=== PATIENT | male | born 1965 | race Caucasian/White ===

== ENCOUNTER 2023-11-27 15:02 | Inpatient (IN) | payer SELFPAY ==
[~2023-11-27] VITALS: Ht 190.5 cm; Wt 148.0 kg
[2023-11-27] VITALS (9 sets, daily range): BP systolic 150–161; BP diastolic 96–108; PULSE 60–77; RESP 12–24; TEMP 97.4–98.4; O2SAT 95–99
[2023-11-27] MEDS: HEPARIN SODIUM (PORCINE) 5000 UNITS/ML 1ML VIAL IV ONE (15:20)
[2023-11-27] MEDS: ASPirin 81 mg TAB PO ONE ×2 (15:21→15:22)
[2023-11-27] MEDS: MORPHINE SULFATE 4 MG/ML SYR/VIAL IV ONE (15:35)
[2023-11-27] MEDS: ONDANSETRON HCL 4 MG/2 ML VIAL IV ONE (15:36)
[2023-11-27 15:43] LABS: Basophils # (auto) 0 10 ^3/uL (0-0.2); Basophils % (auto) 0.4 % (0.0-2.0); Eosinophils # (auto) 0.2 10 ^3/uL (0-0.8); Eosinophils % (auto) 2.2 % (0.0-7.0); Hematocrit 46.1 % (41.0-53.0); Lymphocytes # (auto) 2.4 10 ^3/uL (0.4-5.4); Lymphocytes % (auto) 22.6 % (10.0-50.0); Mean Corpuscular Hemoglobin 31.7 pg (28.0-32.0); Mean Corpuscular Hgb Conc. 34.8 g/dL (32.0-36.0); Mean Corpuscular Volume 91.2 fL (80.0-100.0); Monocytes % (auto) 9.7 % (0.0-12.0); Neutrophils # (auto) 6.8 10 ^3/uL (1.6-8.6); Neutrophils % (auto) 65.1 % (37.0-80.0); Platelet Count (auto) 206 10^3/uL (140-450); Red Blood Cells 5.05 10^6/uL (4.5-5.90); Red Cell Distribution Width 15.1 % (11.8-14.3); White Blood Cell 10.4 10^3/uL (4.4-10.8)
[2023-11-27 15:57] LABS: Alanine Aminotransferase 174 U/L (7-40); Alkaline Phosphatase 78 U/L (46-116); Anion Gap 6 (5-15); Aspartate Aminotransferase 108 U/L (13-40); BUN/Creatinine Ratio 13.4 (10.0-20.0); Bilirubin, Total 0.6 mg/dL (0.2-1.0); Blood Urea Nitrogen 15 mg/dL (9-23); Calcium 9.6 mg/dL (8.7-10.4); Carbon Dioxide 23 mmol/L (20-30); Chloride 111 mmol/L (98-107); Cholesterol 173 mg/dL (< 200); Glucose 134 mg/dL (74-106); HDL Cholesterol 31 mg/dL (40-59); LDL Cholesterol 118 mg/dL (< 100); Magnesium 1.9 mg/dL (1.6-2.6); Potassium 3.5 mmol/L (3.5-5.1); Sodium 140 mmol/L (136-145); Total Protein 6.5 g/dL (5.7-8.2); Triglycerides 224 mg/dL (< 150)
[2023-11-27] MEDS ORDERED: ONDANSETRON HCL 4 MG/2 ML VIAL IV PRN (17:30)
[2023-11-27] MEDS ORDERED: HYDROcodone-ACET 5/325MG TAB PO PRN (17:30)
[2023-11-27] MEDS ORDERED: NITROGLYCERIN 0.4 MG SL TAB SL PRN (17:30)
[2023-11-27] MEDS ORDERED: LABE200T10 PO (18:42)
[2023-11-27] MEDS ORDERED: METH4PAK3 (18:42)
[2023-11-27] MEDS ORDERED: ATOR-47 PO (18:42)
[2023-11-27] MEDS: ATORVASTATIN 20 MG TAB PO SCH (21:28)
[2023-11-27] MEDS: METOPROLOL TARTRATE 25 MG TAB PO SCH (21:29)
[2023-11-28] VITALS (9 sets, daily range): BP systolic 146–174; BP diastolic 84–97; PULSE 65–93; RESP 17–22; TEMP 97.6–98.7; O2SAT 91–97
[2023-11-28] MEDS: fentaNYL CITRATE 100 MCG/2 ML VL ONE (06:52)
[2023-11-28] MEDS: ANGIOMAX 250 MG VIAL IV ONE (06:53)
[2023-11-28] MEDS: HEPARIN IN NS 1000Units/500mL 1,500 ML ONE (06:53)
[2023-11-28] MEDS: MIDAZOLAM HCL 2MG/2ML 2ml VIAL (1mg/ml) ONE (06:53)
[2023-11-28] MEDS: IODIXANOL 320MG/ML 100ML BTL IV ONE ×2 (06:53→06:54)
[2023-11-28] MEDS: LIDOCAINE 2%HCL (LOCAL ANESTH.) INJ 20ML MDV ONE (06:53)
[2023-11-28] MEDS: SODIUM CHL 0.9% 50 ML ONE (06:53)
[2023-11-28] MEDS: CLOPIDOGREL BISULFATE 75 MG TAB ONE (06:54)
[2023-11-28] MEDS: LABETALOL HCL 5 MG/ML ML 20ML VIAL IV ONE (06:54)
[2023-11-28 07:07] LABS: Chloride 104 mmol/L (98-107); Potassium 3.6 mmol/L (3.5-5.1); Sodium 136 mmol/L (136-145)
[2023-11-28 07:08] LABS: Anion Gap 7 (5-15); Basophils # (auto) 0 10 ^3/uL (0-0.2); Basophils % (auto) 0.1 % (0.0-2.0); Carbon Dioxide 25 mmol/L (20-30); Eosinophils # (auto) 0.1 10 ^3/uL (0-0.8); Eosinophils % (auto) 1.3 % (0.0-7.0); Hematocrit 43.5 % (41.0-53.0); Hemoglobin 15.4 g/dL (13.5-17.5); Lymphocytes # (auto) 1.6 10 ^3/uL (0.4-5.4); Lymphocytes % (auto) 13.6 % (10.0-50.0); Mean Corpuscular Hemoglobin 32.6 pg (28.0-32.0); Mean Corpuscular Hgb Conc. 35.4 g/dL (32.0-36.0); Mean Corpuscular Volume 92.2 fL (80.0-100.0); Monocytes # (auto) 0.8 10 ^3/uL (0-1.3); Monocytes % (auto) 7.3 % (0.0-12.0); Neutrophils % (auto) 77.7 % (37.0-80.0); Platelet Count (auto) 166 10^3/uL (140-450); Red Blood Cells 4.72 10^6/uL (4.5-5.90); Red Cell Distribution Width 14.6 % (11.8-14.3); White Blood Cell 11.6 10^3/uL (4.4-10.8)
[2023-11-28 07:09] LABS: Calcium 9.2 mg/dL (8.7-10.4)
[2023-11-28 07:13] LABS: Blood Urea Nitrogen 18 mg/dL (9-23); Glucose 115 mg/dL (74-106)
[2023-11-28] MEDS: hydrALAZINE HCL 20 MG/ML VL IV ONE (08:24)
[2023-11-28] MEDS: CLOPIDOGREL BISULFATE 75 MG TAB PO SCH (08:25)
[2023-11-28] MEDS: ASPirin-EC 81 mg tab PO SCH (08:25)
[2023-11-28] MEDS ORDERED: hydrALAZINE HCL 20 MG/ML VL IV PRN (11:15)
[2023-11-28] MEDS: LOSARTAN POTASSIUM 50 MG TAB PO ONE (12:00)
[2023-11-28] MEDS: LOSARTAN POTASSIUM 50 MG TAB PO SCH (21:31)
[2023-11-28] MEDS: METOPROLOL SUCCINATE XL 50 MG TAB PO SCH (21:31)
[2023-11-29 00:53] VITALS: BP 128/82; PULSE 71; RESP 21; TEMP 99.3; O2SAT 93
[2023-11-29 05:00] VITALS: BP 151/95; PULSE 63; RESP 21; TEMP 99.1; O2SAT 96
[2023-11-29 08:00] VITALS: PULSE 73; PULSE 74; RESP 16; O2SAT 96
[2023-11-29 08:41] VITALS: BP 152/101; PULSE 73; RESP 16; TEMP 98; O2SAT 96
[2023-11-29] MEDS ORDERED: CLOP75TA70 PO (10:03)
[2023-11-29] MEDS ORDERED: ASPI-543 PO (10:03)
[2023-11-29] MEDS ORDERED: LOSA-534 PO (10:03)
[2023-11-29] MEDS ORDERED: METO-6 PO (10:03)
[2023-11-29] MEDS ORDERED: ATOR20TA50 PO (10:03)
[2023-11-29 10:30] VITALS: BP 152/101; PULSE 73
== END 2023-11-29 12:01 | disposition home or self-care (01) | DRG 322 ==
LOC: EDBD 15:02 → ER 15:02 → TELE 17:33 → TELE-CENTR 18:46
PROVIDERS: ADMIT Specialist; ATTEND Internal Medicine
PROC: 027035Z Dilation of Coronary Artery, One Artery with Two Drug-eluting Intraluminal Devices, Percutaneous Approach (ICD-10-PCS; principal; 2023-11-27)
PROC: 02C03ZZ Extirpation of Matter from Coronary Artery, One Artery, Percutaneous Approach (ICD-10-PCS; 2023-11-27)
PROC: 04HY32Z Insertion of Monitoring Device into Lower Artery, Percutaneous Approach (ICD-10-PCS; 2023-11-27)
PROC: 4A023N7 Measurement of Cardiac Sampling and Pressure, Left Heart, Percutaneous Approach (ICD-10-PCS; 2023-11-27)
PROC: B211YZZ Fluoroscopy of Multiple Coronary Arteries using Other Contrast (ICD-10-PCS; 2023-11-27)
PROC: B215YZZ Fluoroscopy of Left Heart using Other Contrast (ICD-10-PCS; 2023-11-27)
PROC: B241ZZ3 Ultrasonography of Multiple Coronary Arteries, Intravascular (ICD-10-PCS; 2023-11-27)
DX: I21.09 ST elevation (STEMI) myocardial infarction involving other coronary artery of anterior wall (principal); Z68.41 Body mass index [BMI] 40.0-44.9, adult; I10 Essential (primary) hypertension; E78.5 Hyperlipidemia, unspecified; E66.01 Morbid (severe) obesity due to excess calories; Z79.899 Other long term (current) drug therapy; Z79.82 Long term (current) use of aspirin; Z79.02 Long term (current) use of antithrombotics/antiplatelets
CPT/HCPCS: 36415; 71045; 80048; 80053; 80061; 83036; 83735; 83880; 84484; 85025; 92929; 92941; 92973; 92978; 93005; 93306; 93458; 99152; 99291; C1887; G0378; J2250; J2405; Q9967

== ENCOUNTER 2024-11-08 16:55 | Inpatient (IN) | payer MEDICAID ==
[~2024-11-08] VITALS: Ht 190.5 cm; Wt 143.5 kg
[~2024-11-08 16:55] MED LIST: ASPI-543 PO; ATOR-47 PO; ATOR20TA50 PO; CLOP75TA70 PO; LABE200T10 PO; LOSA-534 PO; METH4PAK3; METO-6 PO
--- NOTE | 2024-11-08 17:16 | ED.PDOC ---
SOB-HPI HPI Comments 59-year-old male with a history of ST-elevation NV in November of 2023 status post PTCA, hypertension and dyslipidemia brought in by family complaining of shortness of breath for the last 4 days, associated with elevated blood pressure over the last 2 days, and difficulty using his right arm and leg for the last 3 days. He states he feels as though he asked to concentrate in order to use his hand and walk. He denies any focal weakness or numbness, chest pain or headache. Chief Complaint: Shortness of Breath Time Seen by MD: 17:08 Primary Care Provider: UNKNOWN Reviewed notes: Medications, Allergies Information Source: Patient Mode of Arrival: Ambulatory Severity: Moderate Timing: Days Duration: Since onset Context: At Rest Prehospital treatment: None Past Medical History PAST MEDICAL HISTORY: High Lipids, HTN, NV Surgical History: PTCA, Unknown Family History Family History: Reviewed,noncontributory to illness Social History Smoker: Non-Smoker, Unknown Alcohol: Denies ETOH Use, Unknown Drugs: Denies Drug Use, Unknown Lives In: Home Constitutional: denies: chills, diaphoresis, fatigue, fever, malaise, sweats, weakness, others EENTM: denies: blurred vision, double vision, ear bleeding, ear discharge, ear drainage, ear pain, ear ringing, eye pain, eye redness, hearing loss, mouth pain, mouth swelling, nasal discharge, nose bleeding, nose congestion, nose pain, photophobia, tearing, throat pain, throat swelling, voice changes, others Respiratory: reports: shortness of breath; denies: cough, hemoptysis, orthopnea, SOB at rest, SOB with excertion, stridor, wheezing, others Cardiovascular: denies: chest pain, dizzy spells, diaphoresis, Dyspnea on exertion, edema, irregular heart beat, left arm pain, lightheadedness, palpitations, PND, syncope, others Gastrointestinal: denies: abdomen distended, abdominal pain, blood streaked bowels, constipated, diarrhea, dysphagia, difficulty swallowing, hematemesis, melena, nausea, poor appetite, poor fluid intake, rectal bleeding, rectal pain, vomiting, others Genitourinary: denies: burning, dysuria, flank pain, frequency, hematuria, incontinence, penile discharge, penile sore, pain, testicle pain, testicle swelling, urgency, others Neurological: reports: right sided weakness; denies: dizziness, fainting, headache, left sided numbness, left sided weakness, numbness, paresthesia, pre- existing deficit, right sided numbness, seizure, speech problems, tingling, tremors, weakness, others Musculoskeletal: denies: back pain, gout, joint pain, joint swelling, muscle pain, muscle stiffness, neck pain, others Integumetry: denies: bruises, change in color, change in hair/nails, dryness, laceration, lesions, lumps, rash, wounds, others Allergic/Immunocompromised: denies: Difficulty Healing, Frequent Infections, Hives, Itching, others Hematologic/Lymphatic: denies: anemia, blood clots, easy bleeding, easy bruising, swollen glands, others Endocrine: denies: excessive hunger, excessive sweating, excessive thirst, excessive urination, flushing, intolerance to cold, intolerance to heat, unexplained weight gain, unexplained weight loss, others Psychiatric: denies: anxiety, bipolar disorder, depression, hopeless, panic disorder, schizophrenia, sleepless, suicidal, others All Other Systems: Reviewed and Negative Physical Exam General Appearance: Mild Distress, Obese HEENT: Other (Pupils and face symmetric. Moist mucous membranes.) Neck: Full Range of Motion, Normal Inspection Respiratory: Decreased Breath Sounds, No Accessory Muscle Use, No Respiratory Distress Cardiovascular: No Edema, No JVD, Regular Rate/Rhythm Breast Exam: Deferred Gastrointestinal: Non Tender, Soft Genitalia: Deferred Pelvic: Deferred Rectal: Deferred Extremities: Normal inspection, Normal range of motion, Non-tender, No pedal edema Neurologic: Alert (Oriented x4), medical claims specialist II-XII nml as Tested, Normal Affect, Normal Mood, Other (Ambulatory) Cerebellar Function: NOT DONE Reflexes: NOT DONE Skin: Dry, Normal Color, Warm Lymphatic: NOT DONE EKG EKG : Comments Sinus rhythm, rate 70, NE prolonged at 208, normal QRS and QTC intervals, left axis deviation, old inferior infarct, nonspecific T change. Was a procedure done? Was a procedure done?: No Differential Dx Differential Diagnosis: CHF, COPD, Hypertension, Hyponatremia, Myocardial infarction, Pneumonia, Pneumothorax, Pulmonary Embolism, Other (CVA, TIA, hypertensive encephalopathy, among others) X-Ray, Labs, Meds, VS Vital Signs Date Time Temp Pulse Resp B/P (MAP) Pulse Ox O2 Delivery O2 Flow Rate FiO2 11/08/24 20:07 20 96 Nasal Cannula* 2 28 11/08/24 20:00 66 11/08/24 19:15 Nasal Cannula* 2 28 11/08/24 19:15 97.4 69 20 142/86 (104) 93 97.4 11/08/24 18:03 169/105 11/08/24 17:04 70 11/08/24 16:56 98.4 72 18 198/116 94 98.4 Lab Test 11/08/24 18:19 11/08/24 17:46 Range/Units Troponin I High Sensitivity 15 13 </=54 ng/L White Blood Count 8.7 4.4-10.8 10^3/uL Red Blood Count 5.44 4.5-5.90 10^6/uL Hemoglobin 17.2 13.5-17.5 g/dL Hematocrit 49.5 41.0-53.0 % Mean Corpuscular Volume 90.8 80.0-100.0 fL Mean Corpuscular Hemoglobin 31.6 28.0-32.0 pg Mean Corpuscular Hemoglobin Concent 34.8 32.0-36.0 g/dL Red Cell Distribution Width 14.6 H 11.8-14.3 % Platelet Count 200 140-450 10^3/uL Mean Platelet Volume 10.2 6.9-10.8 fL Neutrophils (%) (Auto) 77.9 37.0-80.0 % Lymphocytes (%) (Auto) 13.6 10.0-50.0 % Monocytes (%) (Auto) 6.9 0.0-12.0 % Eosinophils (%) (Auto) 1.5 0.0-7.0 % Basophils (%) (Auto) 0.1 0.0-2.0 % Neutrophils # (Auto) 6.8 1.6-8.6 10 ^3/uL Lymphocytes # (Auto) 1.2 0.4-5.4 10 ^3/uL Monocytes # (Auto) 0.6 0-1.3 10 ^3/uL Eosinophils # (Auto) 0.1 0-0.8 10 ^3/uL Basophils # (Auto) 0 0-0.2 10 ^3/uL Nucleated Red Blood Cells 0.1 % Sodium Level 141 136-145 mmol/L Potassium Level 4.2 3.5-5.1 mmol/L Chloride Level 108 H 98-107 mmol/L Carbon Dioxide Level 23 20-31 mmol/L Anion Gap 10 5-15 Blood Urea Nitrogen 22 9-23 mg/dL Creatinine 1.38 H 0.700-1.30 mg/dL Glomerular Filtration Rate Calc 59 >90 mL/min BUN/Creatinine Ratio 15.9 10.0-20.0 Serum Glucose 146 H 74-106 mg/dL Calcium Level 9.5 8.7-10.4 mg/dL B-Type Natriuretic Peptide 18.03 0-100 pg/mL Current Medications Medications (Trade) Dose Ordered Sig/Gilda Route Start Time Stop Time Status Last Admin Hydralazine HCl (Apresoline Injection) 10 mg ONCE ONCE IV 11/08/24 17:15 11/08/24 17:16 DC 11/08/24 18:03 Ondansetron HCl (Zofran) 4 mg ONCE ONCE IV 11/08/24 17:15 11/08/24 17:16 DC 11/08/24 18:00 Albuterol (Ventolin Medneb) 2.5 mg ONCE ONCE NEB 11/08/24 19:45 11/08/24 19:47 DC 11/08/24 20:06 Ipratropium Hilton (Atrovent Medneb) 0.5 mg ONCE ONCE NEB 11/08/24 19:45 11/08/24 19:47 DC 11/08/24 20:07 PROCEDURE(s): HWOCT - HEAD WITHOUT CONTRAST REASON: R sided weakness ORDER NUMBER(s): [id number], ACCESSION NUMBER(s): [id number] CT brain without contrast CLINICAL INDICATION: R sided weakness FINDINGS: The study was performed in a multidetector scanner. This study performed taking axial images from the skull base up to the vertex. Both brain and bone windows are photographed. Dose lowering techniques have been used including automated exposure control and adjustment of mA and/or KV according to patient size. There are no areas of intraparenchymal hemorrhage or edema. Focal cystic area near the frontal horn of the left lateral ventricle either due to old lacunar infarct or injury. No hydrocephalus. No midline shift. There is opacification of the frontal ethmoid and maxillary sinus air cells. IMPRESSION: 1. No areas of acute intracranial pathology. Focal encephalomalacia in the white matter anterior to the frontal horn left lateral ventricle probably due to old infarct or possibly injury. Computed Tomographic Radiation Dosimetry Report: Total CTDI vol = 64.3mGy Total DLP = 1.71mGy-cm All CT scans at this medical facility are performed using dose modulation techniques as appropriate to a performed exam including the following: Automated exposure control was utilized; adjustment of the MA and/or KvP according to patient size; and use of iterative reconstruction technique. EDURE(s): CXRP - CHEST PORTABLE REASON: hi bp ORDER NUMBER(s): [id number], ACCESSION NUMBER(s): [id number] CHEST RADIOGRAPH Indication: hi bp Technique: Single frontal view of the chest was obtained Comparison: XY CHEST PORTABLE on DOS: 11/27/23 FINDINGS: Lines and Tubes: None Lungs: Scarring or linear atelectasis left costophrenic angle. No prior studies for comparison Pleura: No effusion. No pneumothorax. Cardiomediastinal contours: Unremarkable Bones: No acute osseous abnormality. IMPRESSION: 1. Scarring or linear atelectasis left costophrenic angle. No prior studies for comparison. Report from 11/27/2023 on a chest x-ray is available however there are no prior studies to compare. In the no was no mention of atelectasis in the left costophrenic angle. HS:Y X-Ray, Labs, Meds, VS Comment 59-year-old male with a history of ST-elevation NV in November of 2023 status post PTCA, hypertension and dyslipidemia brought in by family complaining of shortness of breath for the last 4 days, associated with elevated blood pressure over the last 2 days, and difficulty using his right arm and leg for the last 3 days. Vitals remarkable for BP 198/116, oxygen saturation 94% on room air Exam remarkable for diminished breath sounds at lung bases Rhythm strip independently interpreted by me: Sinus rhythm, rate 90, no ectopy. CT head IMPRESSION: 1. No areas of acute intracranial pathology. Focal encephalomalacia in the white matter anterior to the frontal horn left lateral ventricle probably due to old infarct or possibly injury. Chest x-ray IMPRESSION: 1. Scarring or linear atelectasis left costophrenic angle. No prior studies for comparison. Report from 11/27/2023 on a chest x-ray is available however there are no prior studies to compare. In the no was no mention of atelectasis in the left costophrenic angle. CBC unremarkable, metabolic panel remarkable for creatinine 1.38, BNP and 2 serial troponins negative Patient treated with the following in the ED: Zofran 4 mg IV for sudden onset of nausea, albuterol 5 mg/Atrovent 0.5 mg nebulized, hydralazine 10 mg IV On re-evaluation, shortness of breath has somewhat improved, however the patient is saturating 92-93% on room air. Blood pressure improved to 142/86 Plan is to admit the patient for respiratory support, blood pressure control, brain MRI and Neurology evaluation Time of 1ST Reevaluation: 17:38 Reevaluation 1ST: Unchanged Patient Education/Counseling: Diagnosis, Treatment, Need For Follow Up Family Education/Counseling: No Family Present SEPSIS Sepsis Screen Date sepsis recognized/suspect: Nov 08, 2024 Time Sepsis recognized/suspect: 1656 Recent Procedure: No On Antibiotic Therapy: No Respiratory Rate >20: No Heart Rate >90: No Temp<36 C (96.8 F) or >38.3 C: No SBP <90 or MAP <65 mmHG: No New Acute Mental Status Change: No Is the patient on CPAP, BIPAP,: No Physician Orders Electrocardigram (11/08/24 17:11) Chest Portable (11/08/24 17:14) Head Without Contrast (11/08/24 17:14) Troponin-I Hs (11/08/24 20:14) Saline Lock (11/08/24 17:30) Vital Signs Date Time Temp Pulse Resp B/P (MAP) Pulse Ox O2 Delivery O2 Flow Rate FiO2 11/08/24 20:07 20 96 Nasal Cannula* 2 28 11/08/24 20:00 66 11/08/24 19:15 Nasal Cannula* 2 28 11/08/24 19:15 97.4 69 20 142/86 (104) 93 97.4 11/08/24 18:03 169/105 11/08/24 17:04 70 11/08/24 16:56 98.4 72 18 198/116 94 98.4 Laboratory Tests Test 11/08/24 17:46 White Blood Count 8.7 10^3/uL (4.4-10.8) Medications Medications Dose Ordered Sig/Gilda Route Start Time Stop Time Status Last Admin Dose Admin Albuterol 2.5 mg ONCE ONCE NEB 11/08/24 19:45 11/08/24 19:47 DC 11/08/24 20:06 Hydralazine HCl 10 mg ONCE ONCE IV 11/08/24 17:15 11/08/24 17:16 DC 11/08/24 18:03 Ipratropium Hilton 0.5 mg ONCE ONCE NEB 11/08/24 19:45 11/08/24 19:47 DC 11/08/24 20:07 Ondansetron HCl 4 mg ONCE ONCE IV 11/08/24 17:15 11/08/24 17:16 DC 11/08/24 18:00 Departure 1 Departure Time of Disposition: 20:44 Impression: Primary Impression: Hypertensive emergency Additional Impression: Acute respiratory failure Qualified Codes: J96.01 - Acute respiratory failure with hypoxia Disposition: ADMITTED INPATIENT Admit to: Tele Condition: Guarded Critical Care Note Critical Care Time?: Yes (35 min-critical care time only) Critical care comment: Critical care time including multiple bedside re-evaluations, review of lab and imaging studies, and discussion of the case with the admitting provider. P atient is high risk for hemodynamic, respiratory and/or neurologic decompensation. Stability Stability form required: No Heart Score Heart Score: Heart Score Response (Comments) Value History N/A 0 EKG N/A 0 Age N/A 0 Risk Factors N/A 0 Troponin N/A 0 Total 0 I personally scribed for VENITA STUBBS MD ([email or web address]) on 11/08/24 at 17:16. Electronically submitted by Mac Downs ([email or web address]). VENITA STUBBS MD Nov 08, 2024 17:16
--- NOTE | 2024-11-08 17:51 | DVH ---
CT brain without contrast CLINICAL INDICATION: R sided weakness FINDINGS: The study was performed in a multidetector scanner. This study performed taking axial image s from the skull base up to the vertex. Both brain and bone windows are photographed. Dose lowering techniques have been used including automated exposure control and adjustment of mA and /or KV according to patient size. There are no areas of intraparenchymal hemorrhage or edema. Focal cystic area near the frontal horn of the left lateral ventricle either due to old lacunar infarct or injury. No hydrocephalus. No midl ine shift. There is opacification of the frontal ethmoid and maxillary sinus air cells. IMPRESSION: 1. No areas of acute intracranial pathology. Focal encephalomalacia in the white matter anterior to the frontal horn left lateral ventricle probably due to old infarct or possibly injury. Computed Tomographic Radiation Dosimetry Report: Total CTDI vol = 64.3mGy Total DLP = 1.71mGy-cm All CT scans at this medical facility are performed using dose modulation techniques as appropriate to a performed exam including the following: Automated exposure control was utilized; adjustment of the MA and/or KvP according to patient size; and use of iterative reconstruction technique.
[2024-11-08] MEDS: ONDANSETRON HCL 4 MG/2 ML VIAL IV ONE (18:00)
[2024-11-08] MEDS: hydrALAZINE HCL 20 MG/ML VL IV ONE (18:03)
[2024-11-08 18:08] LABS: Hematocrit 49.5 % (41.0-53.0); Hemoglobin 17.2 g/dL (13.5-17.5); Mean Corpuscular Hemoglobin 31.6 pg (28.0-32.0); Mean Corpuscular Volume 90.8 fL (80.0-100.0); Nucleated Red Blood Cells % 0.1 %
[2024-11-08 18:14] LABS: Potassium 4.2 mmol/L (3.5-5.1); Sodium 141 mmol/L (136-145)
[2024-11-08 18:15] LABS: Anion Gap 10 (5-15); Carbon Dioxide 23 mmol/L (20-31)
[2024-11-08 18:16] LABS: Calcium 9.5 mg/dL (8.7-10.4)
[2024-11-08 18:20] LABS: BUN/Creatinine Ratio 15.9 (10.0-20.0); Blood Urea Nitrogen 22 mg/dL (9-23)
[2024-11-08 18:27] LABS: Chloride 108 mmol/L (98-107); Glucose 146 mg/dL (74-106)
--- NOTE | 2024-11-08 19:11 | DVH ---
CHEST RADIOGRAPH Indication: hi bp Technique: Single frontal view of the chest was obtained Comparison: XY CHEST PORTABLE on DOS: 11/27/23 FINDINGS: Lines and Tubes: None Lungs: Scarring or linear atelectasis left costophrenic angle. No prior studies for comparison Pleura: No effusion. No pneumothorax. Cardiomediastinal contours: Unremarkable Bones: No acute osseous abnormality. IMPRESSION: 1. Scarring or linear atelectasis left costophrenic angle. No prior studies for comparison. Report fr om 11/27/2023 on a chest x-ray is available however there are no prior studies to compare. In the no was no mention of atelectasis in the left costophrenic angle. HS:Y
[2024-11-08] MEDS: ALBUTEROL SULF 2.5 MG/0.5ML(0.5%) NEB SOLN NEB ONE (20:06)
[2024-11-08] MEDS: IPRATROPIUM BROM 0.5 MG/2.5ML INH SOL NEB ONE (20:07)
[2024-11-08] MEDS ORDERED: METOPROLOL SUCCINATE XL 50 MG TAB PO ONE ×2 (22:30→23:15)
[2024-11-08] MEDS ORDERED: LABETALOL HCL 200 MG TAB PO ONE (22:30)
[2024-11-08] MEDS: CLOPIDOGREL BISULFATE 75 MG TAB PO ONE (23:10)
[2024-11-08] MEDS: hydroCHLOROthiazide 25 MG TAB PO ONE (23:10)
[2024-11-08] MEDS: LABETALOL HCL 200 MG TAB PO ONE (23:18)
[2024-11-08] MEDS: METOPROLOL SUCCINATE XL 50 MG TAB PO ONE (23:19)
--- NOTE | 2024-11-08 23:43 | DVHHPRES ---
History of Present Illness Resident Creating Document: NAIDA CRISOSTOMO RESIDENT History of Present Illness 59-year-old male with previous history of PTCA, TIA, hypertension presents to the ER with history of shortness of breaths since last 3 days, the shortness of breath is unprovoked and worsens with lying down, improves on sitting. Patient has a history of NSTEMI on 11/2023. Today the patient's blood pressure was elevated at home, measuring 198/112. He denies any chest pain. The patient also complains of right sided weakness since last 3 days. He reports having bloating for years and frequent diarrhea, without blood mixed stools. Today on admission he had mild left lower quadrant pain, which resolved during the time of examining. He denies any fever,nausea or vomiting or any other complaints. Past medical history: NM, stroke, obesity, anxiety Past surgical history: None Home medicines: Atorvastatin 80, labetalol 200 t.i.d., Plavix once daily 75 mg, hydrochlorothiazide 20 mg, metoprolol 25 mg, aspirin 81 mg Smoking: Never Alcohol: Takes very often, few glasses per day Drugs: None PCP: None Lives with family Code status: Full code Review of Systems Review of Systems The patient was seen and examined at the bedside. He reports having shortness of breath, right-sided weakness. No other new complaints reported. Rest of the ROS is negative. Allergies: Coded Allergies: NO KNOWN ALLERGIES (Unverified , 11/27/23) Medications Current Medications Medications Dose Ordered Sig/Gilda Route Start Time Stop Time Status Last Admin Dose Admin Enoxaparin Sodium 40 mg DAILY SC 11/09/24 10:00 Exam Vital Signs Vital Signs Date Time Temp Pulse Resp B/P (MAP) Pulse Ox O2 Delivery O2 Flow Rate FiO2 11/08/24 23:19 82 170/102 11/08/24 22:00 97.4 20 91 97.4 11/08/24 20:07 Nasal Cannula* 2 28 Exam Pt is lying on bed General Appearance: Alert, Oriented X3, Cooperative, Mild distress HEENT: Atraumatic, Mucous membranes moist/pink Respiratory: Clear to auscultation, Normal air movement, No added sounds Cardiovascular: Regular rate, Normal S1, Normal S2, No murmurs Abdominal/ : Active bowel sounds, Soft, no distention, no tenderness Extremities: No edema, Normal pulses, No tenderness/swelling Skin: No Significant rash, except past surgical scars Neuro: Normal speech, left upper and lower extremity strength 2/5 Psych/Mental Status: Mental status NL, Mood NL Nurse was there as wrecking supervisor during examination Labs/Xrays Labs Test 11/08/24 21:00 11/08/24 17:46 Range/Units Troponin I High Sensitivity 11 </=54 ng/L White Blood Count 8.7 4.4-10.8 10^3/uL Red Blood Count 5.44 4.5-5.90 10^6/uL Hemoglobin 17.2 13.5-17.5 g/dL Hematocrit 49.5 41.0-53.0 % Mean Corpuscular Volume 90.8 80.0-100.0 fL Mean Corpuscular Hemoglobin 31.6 28.0-32.0 pg Mean Corpuscular Hemoglobin Concent 34.8 32.0-36.0 g/dL Red Cell Distribution Width 14.6 H 11.8-14.3 % Platelet Count 200 140-450 10^3/uL Mean Platelet Volume 10.2 6.9-10.8 fL Neutrophils (%) (Auto) 77.9 37.0-80.0 % Lymphocytes (%) (Auto) 13.6 10.0-50.0 % Monocytes (%) (Auto) 6.9 0.0-12.0 % Eosinophils (%) (Auto) 1.5 0.0-7.0 % Basophils (%) (Auto) 0.1 0.0-2.0 % Neutrophils # (Auto) 6.8 1.6-8.6 10 ^3/uL Lymphocytes # (Auto) 1.2 0.4-5.4 10 ^3/uL Monocytes # (Auto) 0.6 0-1.3 10 ^3/uL Eosinophils # (Auto) 0.1 0-0.8 10 ^3/uL Basophils # (Auto) 0 0-0.2 10 ^3/uL Nucleated Red Blood Cells 0.1 % Sodium Level 141 136-145 mmol/L Potassium Level 4.2 3.5-5.1 mmol/L Chloride Level 108 H 98-107 mmol/L Carbon Dioxide Level 23 20-31 mmol/L Anion Gap 10 5-15 Blood Urea Nitrogen 22 9-23 mg/dL Creatinine 1.38 H 0.700-1.30 mg/dL Glomerular Filtration Rate Calc 59 >90 mL/min BUN/Creatinine Ratio 15.9 10.0-20.0 Serum Glucose 146 H 74-106 mg/dL Calcium Level 9.5 8.7-10.4 mg/dL B-Type Natriuretic Peptide 18.03 0-100 pg/mL SEPSIS Sepsis Screen Date sepsis recognized/suspect: Nov 08, 2024 Time Sepsis recognized/suspect: 2048 Recent Procedure: No On Antibiotic Therapy: No Respiratory Rate >20: No Heart Rate >90: No Temp<36 C (96.8 F) or >38.3 C: No SBP <90 or MAP <65 mmHG: No New Acute Mental Status Change: No Is the patient on CPAP, BIPAP,: No Physician Orders Electrocardigram (11/08/24 17:11) Chest Portable (11/08/24 17:14) Head Without Contrast (11/08/24 17:14) Saline Lock (11/08/24 17:30) Admit (11/08/24 22:18) Code Status (11/08/24 22:18) Oxygen Per Hour (11/08/24 22:18) Enoxaparin Sodium (Lovenox) (11/09/24 10:00) Complete Blood Count (11/09/24 04:00) Comprehensive Metabolic Panel (11/09/24 04:00) Clear Liq Diet (11/09/24 Breakfast) Oxygen By Nasal Cannula (11/08/24 22:18) Stat Ekg For Chest Pain (11/08/24 22:18) Notify Md Of Changes From Base (11/08/24 22:18) Cds Sales Advisor For 24 Hours (11/08/24 22:18) Emergency Dysrhythmia Protocol (11/08/24 22:18) Rhythm Strips Once Every Shift (11/08/24 22:18) Vital Signs Date Time Temp Pulse Resp B/P (MAP) Pulse Ox O2 Delivery O2 Flow Rate FiO2 11/08/24 23:19 82 170/102 11/08/24 23:18 82 170/102 11/08/24 23:10 170/102 11/08/24 22:00 97.4 91 20 166/102 (123) 91 97.4 11/08/24 20:07 20 96 Nasal Cannula* 2 28 11/08/24 20:00 66 11/08/24 19:15 Nasal Cannula* 2 28 11/08/24 19:15 97.4 69 20 142/86 (104) 93 97.4 11/08/24 18:03 169/105 11/08/24 17:04 70 11/08/24 16:56 98.4 72 18 198/116 94 98.4 Laboratory Tests Test 11/08/24 17:46 White Blood Count 8.7 10^3/uL (4.4-10.8) Medications Medications Dose Ordered Sig/Gilda Route Start Time Stop Time Status Last Admin Dose Admin Albuterol 2.5 mg ONCE ONCE NEB 11/08/24 19:45 11/08/24 19:47 DC 11/08/24 20:06 2.5 MG Clopidogrel Bisulfate 75 mg ONCE ONCE PO 11/08/24 22:30 11/08/24 22:58 DC 11/08/24 23:10 75 MG Hydralazine HCl 10 mg ONCE ONCE IV 11/08/24 17:15 11/08/24 17:16 DC 11/08/24 18:03 10 MG Hydrochlorothiazide 25 mg ONCE ONCE PO 11/08/24 22:30 11/08/24 22:58 DC 11/08/24 23:10 25 MG Ipratropium Talent 0.5 mg ONCE ONCE NEB 11/08/24 19:45 11/08/24 19:47 DC 11/08/24 20:07 0.5 MG Labetalol HCl 200 mg ONCE ONCE PO 11/08/24 23:15 11/08/24 23:16 DC 11/08/24 23:18 200 MG Metoprolol Succinate 25 mg ONCE ONCE PO 11/08/24 23:30 11/08/24 23:31 DC 11/08/24 23:19 25 MG Ondansetron HCl 4 mg ONCE ONCE IV 11/08/24 17:15 11/08/24 17:16 DC 11/08/24 18:00 4 MG Assessment/Plan Assessment/Plan Hypertensive emergency with stroke/neurologic deficit sign Shortness of breaths due to systolic or diastolic heart failure Atelectasis on x-ray due to mucus plugs? Shortness of breaths due to pneumonia History of NSTEMI status post PTCA head CT: NO areas of acute intracranial pathology, focal encephalomalacia in the white matter anterior to the frontal horn left lateral ventricle probably due old infarct or possibly injury CXR:Scarring or linear atelectasis left costophrenic angle. No prior studies for comparison. Report from 11/27/2023 on a chest x-ray is available however there are no prior studies to compare. In the no was no mention of atelectasis in the left costophrenic angle. EKG:Sinus rhythm, rate 70, CO prolonged at 208, normal QRS and QTC intervals, left axis deviation, old inferior infarct, nonspecific T change. -telemetry monitoring -oxygen 2 L by nasal cannula -Breathing treatment with albuterol and ipratropium -blood pressure control: Hydralazine Amlodipine Hydrochlorothiazide Metoprolol -Preventive treatment: Plavix 75 mg Aspirin 81 mg Atorvastatin 80 mg BART likely due to VMN Creatinine 1.38 IV fluid and monitor labs GI prophylaxis: Pantoprazole DVT prophylaxis: Lovenox Diet: Cardiac Goals of care discussed with the patient for more than 27 minutes: Full code status Case discussed with , patient and RN Plan discussed with: Patient, Other (RN) My Orders Orders - NAIDA CRISOSTOMO RESIDENT Procedure Category Date Status Time Admit ADMIT 11/08/24 Transmitted 22:18 Code Status CODE 11/08/24 Transmitted 22:18 Oxygen Per Hour RT 11/08/24 Transmitted 22:18 Enoxaparin Sodium PHA 11/09/24 In Process (Lovenox) 10:00 Complete Blood Count LAB 11/09/24 Verified 04:00 Comprehensive LAB 11/09/24 Verified Metabolic Panel 04:00 Clear Liq Diet DIET 11/09/24 Transmitted Breakfast Oxygen By Nasal RT 11/08/24 Transmitted Cannula 22:18 Stat Ekg For Chest NICOLE 11/08/24 In Process Pain 22:18 Notify Md Of Changes NICOLE 11/08/24 In Process From Base 22:18 Cds Sales Advisor For NICOLE 11/08/24 In Process 24 Hours 22:18 Emergency Dysrhythmia NICOLE 11/08/24 In Process Protocol 22:18 Rhythm Strips Once NICOLE 11/08/24 In Process Every Shift 22:18 Date of Service: Nov 08, 2024 Billing Provider: ESTRELLA GALEAS MD Common Visit Codes: [id number] INP/OBS CARE (HIGH) Secondary Visit Codes: [id number] CARE PLAN 30 MINUTES NAIDA CRISOSTOMO Nov 08, 2024 23:43 ESTRELLA GALEAS MD Nov 14, 2024 16:27
[2024-11-09] VITALS (21 sets, daily range): BP systolic 139–170; BP diastolic 83–102; PULSE 64–88; RESP 14–20; TEMP 97.4–98.7; O2SAT 92–100
[2024-11-09] MEDS: IPRATROPIUM BROM 0.5 MG/2.5ML INH SOL NEB SCH (00:47)
[2024-11-09] MEDS: ALBUTEROL SULF 2.5 MG/0.5ML(0.5%) NEB SOLN NEB SCH (00:47)
[2024-11-09] MEDS: AZITHROMYCIN 500MG/ 250ML 250 ML IV ONE (02:03)
[2024-11-09 02:35] LABS: Hematocrit 48.5 % (41.0-53.0); Hemoglobin 16.7 g/dL (13.5-17.5); Mean Corpuscular Hemoglobin 31.4 pg (28.0-32.0); Mean Corpuscular Volume 91.4 fL (80.0-100.0); Nucleated Red Blood Cells % 0.1 %
[2024-11-09 02:38] LABS: COVID19 ANTIGEN SOFIA FIA NEGATIVE (NEGATIVE)
[2024-11-09 02:53] LABS: Albumin 4.6 g/dL (3.2-4.8); Alkaline Phosphatase 77 U/L (46-116); Anion Gap 10 (5-15); BUN/Creatinine Ratio 15.4 (10.0-20.0); Bilirubin, Total 1.1 mg/dL (0.2-1.0); Blood Urea Nitrogen 21 mg/dL (9-23); Calcium 9.4 mg/dL (8.7-10.4); Carbon Dioxide 22 mmol/L (20-31); Chloride 105 mmol/L (98-107); Potassium 4.0 mmol/L (3.5-5.1); Sodium 137 mmol/L (136-145); Total Protein 6.8 g/dL (5.7-8.2)
[2024-11-09 03:22] LABS: Alanine Aminotransferase 51 U/L (7-40); Glucose 130 mg/dL (74-106)
[2024-11-09] MEDS: PANTOPRAZOLE 40 MG TAB PO SCH (06:30)
[2024-11-09] MEDS: METOPROLOL SUCCINATE XL 50 MG TAB PO SCH (09:58)
[2024-11-09] MEDS: ENOXAPARIN SOD 40 MG/0.4 ML SYRINGE SC SCH (09:59)
[2024-11-09] MEDS ORDERED: ENOXAPARIN SOD 30 MG/0.3 ML SYRINGE SC SCH (10:00)
--- NOTE | 2024-11-09 12:26 | DVHPNRES ---
Progress Note Date Seen: Nov 09, 2024 Resident Creating Document: MAKENZIE WHITEHEAD RESIDENT Medical Necessity Reason Pt with a Central, PICC or Fol: No Subjective Review of Systems Frank Perez is a 59-year-old male with previous history of CAD, TIA, HTN, presents to the ER with complain of shortness of breaths since last 3 days. SOB worsens with lying down and exertion, improves on sitting. No history of chest pain, palpitation, cough. Has a history of NSTEMI on 11/2023. He reported undergoing echo 3 years ago which was normal. He also complains of right sided weakness since last 3 days. He reported diarrhea since 1 year, with floating stools associated with the abdominal pain, no blood in stools. He has alternating constipation, has not underwent a colonoscopy. Social history: Reports occasional alcohol use. Denies smoking, recreational drug use. Lives in home. Home medication: Lisinopril, hydrochlorothiazide, labetalol, Lipitor, clopidogrel, metoprolol, losartan, aspirin ROS: Constitutional: Denies weight loss, fever and chills. HEENT: Denies changes in vision and hearing. Respiratory: Shortness of breaths, which increases on lying down and exertion Cardiovascular: Denies chest discomfort or palpitations GI: Alternating constipation and diarrhea with abdominal pain : Denies dysuria and urinary frequency. Musculoskeletal: Denies myalgias and joint pain Skin: Denies rash and pruritus. Neurological: Denies dizziness, headache, vision or hearing problems He was examined at bedside today he continues to complain of shortness of breaths, has improved from admission. We will continue to monitor and manage Objective vital signs Vital Sign Date Time Temp Pulse Resp B/P (MAP) Pulse Ox O2 Delivery O2 Flow Rate FiO2 11/09/24 11:18 64 14 99 11/09/24 11:10 Room Air 0.0 11/09/24 11:10 21 11/09/24 09:58 149/90 11/09/24 08:43 98.1 98.1 Total Intake and Output 11/08/24 11/08/24 11/09/24 15:00 23:00 07:00 Intake Total 250 ml Balance 250 ml medications Current Medications Medications Dose Ordered Sig/Gilda Route Start Time Stop Time Status Last Admin Dose Admin Enoxaparin Sodium 40 mg DAILY SC 11/09/24 10:00 11/09/24 09:59 40 MG Albuterol 2.5 mg Q6HR NEB 11/09/24 00:00 11/09/24 11:10 2.5 MG Ipratropium [place] 0.5 mg Q6HR NEB 11/09/24 00:00 11/09/24 11:10 0.5 MG Azithromycin 500 mg DAILY PO 11/10/24 10:00 Metoprolol Succinate 25 mg DAILY PO 11/09/24 10:00 11/09/24 09:58 25 MG Aspirin 81 mg DAILY PO 11/09/24 10:00 11/09/24 09:57 81 MG Atorvastatin Calcium 80 mg HS PO 11/09/24 22:00 Pantoprazole Sodium 40 mg DAILY@0600 PO 11/09/24 06:00 11/09/24 06:30 40 MG Examination General: Patient alert and oriented in person, place and time. Patient following commands. HEENT: Normocephalic, atraumatic, moist mucous membranes Respiratory/pulmonary: Clear lungs bilaterally, vesicular murmurs present in almost all lung warner, no associated crackles or wheezes. Cardiovascular: Heart sounds are distant, no murmur heard Abdomen: Protuberant abdomen, without any tenderness Extremities: Grade 2 pitting edema present Peripheral Pulses: 3+ Radial (R). 3+ Radial (L). 3+ Dorsalis pedis (R). 3+ Dorsalis pedis(L) Skin: No rashes or pruritus, there is no sacral edema present at this time. Neurological: Intact cranial nerves with no focal neurologic deficits laboratory and microbiology Laboratory Tests 11/09/24 02:22 Test 11/09/24 02:22 Range/Units Serum Glucose 130 H 74-106 mg/dL Problem List/Assessment/Plan Problem List/Assessment/Plan Acute exacerbation of systolic or diastolic heart failure Hemorrhagic Stroke, ruled out Head CT: NO areas of acute intracranial pathology, focal encephalomalacia in the white matter anterior to the frontal horn left lateral ventricle probably due old infarct or possibly injury CXR:Scarring or linear atelectasis left costophrenic angle. No prior studies for comparison. Report from 11/27/2023 on a chest x-ray is available however there are no prior studies to compare. In the no was no mention of atelectasis in the left costophrenic angle. EKG:Sinus rhythm, rate 70, CO prolonged at 208, normal QRS and QTC intervals, left axis deviation, old inferior infarct, nonspecific T change. Monitor on Telemetry Oxygen 2 L by nasal cannula Breathing treatment with albuterol and ipratropium Pneumonia, d/t gram+/gram-, possible Atelectasis on x-ray due to mucus plugs, possible Continue IV azithromycin CXR: Scarring or linear atelectasis left costophrenic angle. Opacity in the left lower lobe. Essential hypertension Hypertensive emergency, resolved Managed with Hydralazine, Amlodipine, Hydrochlorothiazide , Metoprolol Status post PCI Continue Plavix 75 mg, Aspirin 81 mg, Atorvastatin 80 mg BART likely due to VMN Creatinine 1.38 IV fluid and monitor labs History of alcohol use [facility] protocol Hx of CAD Hx of TIA Morbid obesity DIET: Liquid DVT PROPHYLAXIS: Lovenox GI PROPHYLAXIS: Protonix CODE STATUS: Goals of care discussed with patient at bedside for more than 35 minutes. Full code DISPOSITION: Med/surge Patient's status and plan discussed with the patient. Case discussed with Dr. Laughlin. Plan discussed with: Patient Date of Service: Nov 09, 2024 Billing Provider: ANITHA LAUGHLIN MD Common Visit Codes: [id number] INP/OBS CARE(HIGH) MAKENZIE WHITEHEAD RESIDENT Nov 09, 2024 12:26 ANITHA LAUGHLIN MD Nov 09, 2024 23:32
--- NOTE | 2024-11-09 15:36 | DVH ---
CT HEAD WITHOUT CONTRAST INDICATION: rule out intracranial pathology and hemorrohagic stroke EXAM DATE: 11/09/2024 03:05 PM COMPARISON: CT HEAD WITHOUT CONTRAST on DOS: 11/08/24 RADIATION DOSE: CTDIvol: 67 mGy, DLP: 1126 mGy*cm PROCEDURE: CT scans of the head were obtained from the vertex to the skull base. Sagittal and coronal reconstructions were provided. All CT scans at this medical facility are performed using dose modulation techniques as appropriate t o a performed exam including the following: Automated exposure control was utilized; adjustment of th e MA and/or KV according to patient size; and use of iterative reconstruction technique. FINDINGS: Similar left frontal lobe encephalomalacia from old infarct. There is sulcal and ventricul ar prominence. The brain otherwise shows normal morphology and powers-white matter differentiation, wit hout intracranial hemorrhage, extra-axial fluid collection, mass effect or acute large vessel infarct . The ventricles are normal in size. The basal cisterns are patent. The skull and visible facial bone s are intact. The paranasal sinuses are opacified. The mastoid air cells and middle ear cavities are well-aerated. The soft tissues of the scalp are unremarkable. IMPRESSION: Severe paranasal sinusitis. No acute intracranial abnormality.
[2024-11-09] MEDS: THIAMINE 100mg/ml INJ (200mg/2ml VIAL) IV ONE (17:52)
[2024-11-09] MEDS: LORazepam 2MG/ML-1ML VIAL IV SCH (17:52)
[2024-11-09] MEDS: hydroCHLOROthiazide 25 MG TAB PO ONE (17:53)
[2024-11-09] MEDS ORDERED: MAALOX PLUS or MAALOX 30 ML GT PRN (18:00)
[2024-11-09] MEDS: FOLIC ACID 1 MG in D5W 5% 50 ML INJ ONE (18:33)
--- NOTE | 2024-11-09 19:46 | DVH ---
ULTRASOUND ABDOMEN, LIMITED RIGHT UPPER QUADRANT: REASON FOR EXAM: known long lasting alcohol consumption, rule out cirrhosis TECHNIQUE: Real-time sector scans in the transverse and longitudinal planes were obtained through th e right upper quadrant of the abdomen. FINDINGS: The liver is borderline enlarged at 16.3 cm in length. The liver is mildly nodular. The li crissy echotexture is coarse and echogenic. There is hepatopetal flow in the portal vein. There is no intrahepatic nor extrahepatic biliary ductal dilatation. The common bile duct measures 5 mm. No gal lstones or sludge are identified. There is no gallbladder wall thickening nor pericholecystic fluid. There is no sonographic Banks's sign. The pancreas is obscured by bowel gas. The right kidney measures 10.5 cm. No hydronephrosis or nephrolithiasis is identified. There is no evidence of right renal mass or cyst. The visualized portions of the abdominal aorta demonstrate no evidence of aneurysmal dilatation. The visualized inferior vena cava is unremarkable. There is no free fluid identified in the right upper quadrant. IMPRESSION: Mildly nodular liver surface suggestive of cirrhosis. The liver is diffusely echogenic which may be s econdary to steatosis or another diffuse hepatocellular process. Correlate clinically and with liver function tests.
[2024-11-09 20:12] LABS: INR 1.08 (0.9-1.15); Prothrombin Time 11.4 sec (9.3-11.8)
[2024-11-09] MEDS: ATORVASTATIN 20 MG TAB PO SCH (23:13)
[2024-11-09] MEDS: LACTULOSE 20Gm/30ML SOLN PO ONE (23:13)
[2024-11-10] VITALS (19 sets, daily range): BP systolic 135–168; BP diastolic 89–113; PULSE 58–106; RESP 16–20; TEMP 97.5–98.5; O2SAT 92–100
--- NOTE | 2024-11-10 01:00 | DVHSR ---
APPROVED REPORT EXAM: LIMITED Two-dimensional and M-mode echocardiogram with Doppler and color Doppler. Blood Pressure: 153/93 mmHg INDICATION rule out structural heart disease RISK FACTORS Obesity: Height: 6'3, Weight: 360 DIMENSIONS LVDd5.6 (3.8-5.7cm)LA (2D)3.7 (1.9-4.0cm)Aortic Root4.2 (2.0-3.7cm) LVDs3.7 (2.5-4.0cm)LA (MM) (1.9-4.0cm)Aortic Cusp Exc2.3 (1.5-2.0cm) EF (%) 65.0 (55-70%)Rt. Atrium3.3 (1.9-4.0cm)Asc. Aorta4.2 cm IVSd1.3 (0.7-1.1cm)RV (D)4.4 (1.8-2.4cm) PWd1.1 (0.7-1.1cm) Mitral Valve MitralMitral Stenosis E wave0.39m/sMV Mean GR.mmHg A wave0.57m/sMV Peak GR.mmHg E/A ratio0.72D MVAcm2 DECEL [id number] 1/2 Timems Aortic Valve Aortic ValveAortic Stenosis V10.97m/Liza Mean GR.3mmHg V21.00m/Liza Peak GR.4mmHg LVOT Diameter2.8 (1.8-2.4cm)Doppler AVA5.97cm2 Tricuspid Valve TR Velocity2.40m/s [id number] Other Information Quality : Technically LimitedRhythm : Technically limited study due to patient position.body habitus. Conclusion NORMAL LV EF IS 65% NORMAL VALVES RV SLIGHTLY DILATED NO EFFUSION
[2024-11-10 07:11] LABS: Alkaline Phosphatase 84 U/L (46-116); Anion Gap 11 (5-15); BUN/Creatinine Ratio 13.4 (10.0-20.0); Blood Urea Nitrogen 19 mg/dL (9-23); Calcium 9.8 mg/dL (8.7-10.4); Carbon Dioxide 24 mmol/L (20-31); Chloride 104 mmol/L (98-107); Glucose 105 mg/dL (74-106); Potassium 3.8 mmol/L (3.5-5.1); Sodium 139 mmol/L (136-145); Total Protein 7.2 g/dL (5.7-8.2)
[2024-11-10 07:15] LABS: Alanine Aminotransferase 54 U/L (7-40); Albumin 5.0 g/dL (3.2-4.8); Bilirubin, Total 1.7 mg/dL (0.2-1.0)
[2024-11-10] MEDS ORDERED: MAALOX PLUS or MAALOX 30 ML PO PRN (07:45)
[2024-11-10] MEDS: MULTIPLE VITAMIN TAB PO SCH (08:46)
[2024-11-10] MEDS: FOLIC ACID 1 MG TAB PO SCH (08:47)
[2024-11-10] MEDS: hydroCHLOROthiazide 25 MG TAB PO SCH (08:48)
[2024-11-10] MEDS: THIAMINE HCL 100 MG TAB PO SCH (08:48)
[2024-11-10] MEDS: LACTULOSE 20Gm/30ML SOLN PO SCH (08:48)
[2024-11-10] MEDS ORDERED: AZITHROMYCIN 250 MG TAB PO SCH (10:00)
[2024-11-10] MEDS: AZITHROMYCIN 500MG/ 250ML 250 ML IV SCH (10:42)
[2024-11-10 11:35] LABS: Urine Protein, UAD Negative (Negative)
[2024-11-10 11:38] LABS: Amphetamine Screen, Urine Neg (NEGATIVE); Barbiturate Scree,Urine Neg (NEGATIVE); Benzodiazephine Screen, Urine Neg (NEGATIVE); Cannabinoid Screen, Urine Neg (NEGATIVE); Cocaine Screen, Urine Neg (NEGATIVE); Opiate Scree,Urine Neg (NEGATIVE); Phencyclidine Screen, Urine Neg (NEGATIVE)
[2024-11-10] MEDS ORDERED: LORA-1121 PO (11:48)
[2024-11-10] MEDS ORDERED: LORazepam 0.5 MG TAB PO PRN (12:30)
--- NOTE | 2024-11-10 14:22 | DVH ---
Procedure: CT HI-RESOLUTION CHEST CT Reason for study/Clinical History: rule out interstitial lung disease Comparison Study: None TECHNIQUE: Multidetector CT of the chest was performed from the lung apices to the upper abdomen with out the use of intravenous contract. Axial, coronal and sagittal multiplanar reformats were performed . Radiation Dose Information: CT Dose: CTDI volume is 29.73 mGy. Dose-length product is 2.54 mGy*cm The dose indicators for CT are the volume Computed Tomography (CT) Dose Index (CTDIvol) and the Dose Length Product (DLP), and are measured in units of mGy and mGy-cm, respectively. These indicators are not patient dose, but values generated from the CT scanner acquisition factors. The report includes radiation exposure data for exposures received during this examination. FINDINGS: Lower neck: Unremarkable. Lungs: No focal consolidation. No suspicious pulmonary nodule. Heart/Vascular Structures: Cardiomegaly. Coronary artery calcifications. Vascular calcifications of t he aorta. Lymph Nodes: No adenopathy Pleura: No pleural effusion or significant pneumothorax. Musculoskeletal: No acute osseous abnormality. Soft tissues: Normal. Upper abdomen: Limited portions of the upper abdomen are unremarkable. IMPRESSION: No acute intrathoracic abnormality. No findings to suggest interstitial lung disease. Radiation optimization: All CT scans at this facility use at least one of these dose optimization zainab hniques: automated exposure control mA and/or kV adjustment per patient size (includes targeted exam s where dose is matched to clinical indication) or iterative reconstruction.
--- NOTE | 2024-11-10 16:13 | DVHPNRES ---
Progress Note Date Seen: Nov 10, 2024 Resident Creating Document: MAKENZIE WHITEHEAD RESIDENT Medical Necessity Reason Pt with a Central, PICC or Fol: No Subjective Review of Systems Brief history and review of system on arrival: Frank Perez is a 59-year-old male with previous history of CAD, TIA, HTN, presents to the ER with complain of shortness of breaths. SOB worsens with lying down and exertion, improves on sitting. No history of chest pain, palpitation, cough. Has a history of NSTEMI on 11/2023. He reported undergoing echo 3 years ago which was normal. He also complains of right sided weakness since last 3 days. He reported diarrhea since 1 year, with floating stools associated with the abdominal pain, no blood in stools. He has alternating constipation, has not underwent a colonoscopy. On discussion with girlfriend after his permission, she reported he drinks 4 beers daily and has difficulty quitting alcohol in the past. She also reported confusion, forgetfulness and declining alcohol abuse. Social history: Reports occasional alcohol use. Denies smoking, recreational drug use. Lives in home. Home medication: Lisinopril, hydrochlorothiazide, labetalol, Lipitor, clopidogrel, metoprolol, losartan, aspirin ROS: Constitutional: Denies weight loss, fever and chills. HEENT: Denies changes in vision and hearing. Respiratory: Shortness of breaths, which increases on lying down and exertion Cardiovascular: Denies chest discomfort or palpitations GI: Alternating constipation and diarrhea with abdominal pain : Denies dysuria and urinary frequency. Musculoskeletal: Denies myalgias and joint pain Skin: Denies rash and pruritus. Neurological: Denies dizziness, headache, vision or hearing problems 11/10/24: Overnight, nurse reported he was nervous and anxious. He was examined at bedside today And has a mildly slurred speech. He is undergoing workup for heart failure, CT chest, toxicology screen pending, continuing management with [facility] protocol. Objective vital signs Vital Sign Date Time Temp Pulse Resp B/P (MAP) Pulse Ox O2 Delivery O2 Flow Rate FiO2 11/10/24 12:44 97.8 77 18 167/113 (131) 96 97.8 11/10/24 12:04 Room Air 11/10/24 12:04 0 21 Total Intake and Output 11/09/24 11/09/24 11/10/24 15:00 23:00 07:00 Intake Total 750 ml 400 ml Output Total 400 ml Balance 350 ml 400 ml medications Current Medications Medications Dose Ordered Sig/Gilda Route Start Time Stop Time Status Last Admin Dose Admin Enoxaparin Sodium 40 mg DAILY SC 11/09/24 10:00 11/10/24 08:49 40 MG Albuterol 2.5 mg Q6HR NEB 11/09/24 00:00 11/10/24 12:04 2.5 MG Ipratropium [place] 0.5 mg Q6HR NEB 11/09/24 00:00 11/10/24 12:04 0.5 MG Aspirin 81 mg DAILY PO 11/09/24 10:00 11/10/24 08:48 81 MG Atorvastatin Calcium 80 mg HS PO 11/09/24 22:00 11/09/24 23:13 80 MG Pantoprazole Sodium 40 mg DAILY@0600 PO 11/09/24 06:00 11/10/24 05:55 40 MG Multivitamins 1 tab DAILY PO 11/10/24 10:00 11/10/24 08:46 1 TAB Hydrochlorothiazide 25 mg DAILY PO 11/10/24 10:00 11/10/24 08:48 25 MG Lactulose 15 ml DAILY PO 11/10/24 10:00 11/10/24 08:48 15 ML Al Hydrox/Mg Hydrox/Simethicone 15 ml Q8HP PRN PO 11/10/24 07:45 Thiamine HCl 500 mg/Dextrose 55 ml @ 100 mls/hr BID IV 11/10/24 12:30 11/12/24 22:32 Thiamine HCl 250 mg/Dextrose 52.5 ml @ 100 mls/hr DAILY IV 11/13/24 10:00 11/18/24 09:59 Lorazepam 1 mg Q6HP PRN PO 11/10/24 12:30 Azithromycin 500 mg DAILY PO 11/11/24 10:00 Examination General: Slurred speech, nervous demeanor, indifference. Patient alert and oriented in person, place and time. Patient following commands. HEENT: Normocephalic, atraumatic, moist mucous membranes Respiratory/pulmonary: Clear lungs bilaterally, vesicular murmurs present in almost all lung warner, no associated crackles or wheezes. Cardiovascular: Heart sounds are distant, no murmur heard Abdomen: Protuberant abdomen, without any tenderness Extremities: Grade 2 pitting edema present Peripheral Pulses: 3+ Radial (R). 3+ Radial (L). 3+ Dorsalis pedis (R). 3+ Dorsalis pedis(L) Skin: No rashes or pruritus, there is no sacral edema present at this time. Neurological: Intact cranial nerves with no focal neurologic deficits laboratory and microbiology Laboratory Tests 11/10/24 06:14 11/09/24 02:22 Test 11/10/24 06:14 Range/Units Serum Glucose 105 74-106 mg/dL Problem List/Assessment/Plan Problem List/Assessment/Plan Acute hypoxic respiratory failure, due to Pneumonia, d/t gram+/gram-, possible Atelectasis on x-ray due to mucus plugs, possible CXR: Opacity in the left lower lobe. Continue breathing treatment as needed Switch to oral azithromycin Continue telemetry Essential hypertension Hypertensive emergency, resolved Managed with Hydralazine, Amlodipine, Hydrochlorothiazide , Metoprolol Status post PCI Continue Plavix, Aspirin, Atorvastatin BART likely due to VMN Creatinine 1.38 IV fluid and monitor labs Chronic alcohol Use [facility] protocol Metabolic encephalopathy due to below, possible Wernicke's encephalopathy, possible Liver cirrhosis Hepatic steatosis Started high-dose IV thiamine, folic acid Continue lactulose Hx of CAD Hx of TIA Morbid obesity Acute systolic heart failure, ruled out Echo shows LVEF 60% Hemorrhagic Stroke, ruled out Head CT: No areas of acute intracranial pathology. DIET: Liquid DVT PROPHYLAXIS: Lovenox GI PROPHYLAXIS: Protonix CODE STATUS: Goals of care discussed with patient at bedside for more than 35 minutes. Full code DISPOSITION: Med/surge Patient's status and plan discussed with the patient. Case discussed with Dr. Laughlin. Plan discussed with: Patient My Orders My Orders Orders - MAKENZIE WHITEHEAD RESIDENT Procedure Category Date Status Time * [employer] CONS 11/10/24 Transmitted Consult Thiamine Inj PHA 11/10/24 In Process 12:30 Thiamine Inj PHA 11/13/24 In Process 10:00 Lorazepam Tablet PHA 11/10/24 In Process (Ativan Tablet) 12:30 Azithromycin Tablet PHA 11/11/24 In Process (Zithromax Tablet) 10:00 Date of Service: Nov 10, 2024 Billing Provider: ANITHA LAUGHLIN MD Common Visit Codes: [id number] INP/OBS CARE(HIGH) GEHLAWAT,MAKENZIE RESIDENT Nov 10, 2024 16:13 ANITHA LAUGHLIN MD Nov 14, 2024 22:10
[2024-11-10] MEDS: FOLIC ACID 1 MG in D5W 5% 50 ML INJ ONE (17:54)
[2024-11-10] MEDS: THIAMINE INJ 500 MG in D5W 5% 50 ML IV SCH (18:20)
[2024-11-11] VITALS (19 sets, daily range): BP systolic 136–168; BP diastolic 85–115; PULSE 68–103; RESP 16–20; TEMP 97.4–98.2; O2SAT 91–100
[2024-11-11] MEDS: AZITHROMYCIN 250 MG TAB PO SCH (09:32)
--- NOTE | 2024-11-11 13:22 | DVHPNRES ---
Progress Note Date Seen: Nov 11, 2024 Resident Creating Document: PARMJIT MCLAUGHLIN RESIDENT Medical Necessity Reason Pt with a Central, PICC or Fol: No Subjective Review of Systems Patient was seen at bedside in the morning. Patient reports being confused. Patient reports no shortness of breath, no diarrhea since yesterday. No sign of withdrawal apart from the confusion. Objective vital signs Vital Sign Date Time Temp Pulse Resp B/P (MAP) Pulse Ox O2 Delivery O2 Flow Rate FiO2 11/11/24 10:00 97 Room Air* 0 21 11/11/24 09:31 163/108 11/11/24 09:00 97.6 82 20 97.6 Total Intake and Output 11/10/24 11/10/24 11/11/24 15:00 23:00 07:00 Intake Total 250 ml 905 ml 375 ml Output Total 200 ml 400 ml Balance 50 ml 505 ml 375 ml medications Current Medications Medications Dose Ordered Sig/Gilda Route Start Time Stop Time Status Last Admin Dose Admin Enoxaparin Sodium 40 mg DAILY SC 11/09/24 10:00 11/11/24 09:30 40 MG Albuterol 2.5 mg Q6HR NEB 11/09/24 00:00 11/11/24 06:13 2.5 MG Ipratropium [place] 0.5 mg Q6HR NEB 11/09/24 00:00 11/11/24 06:13 0.5 MG Aspirin 81 mg DAILY PO 11/09/24 10:00 11/11/24 09:33 81 MG Atorvastatin Calcium 80 mg HS PO 11/09/24 22:00 11/10/24 22:09 80 MG Pantoprazole Sodium 40 mg DAILY@0600 PO 11/09/24 06:00 11/11/24 06:04 40 MG Multivitamins 1 tab DAILY PO 11/10/24 10:00 11/11/24 09:31 1 TAB Hydrochlorothiazide 25 mg DAILY PO 11/10/24 10:00 11/11/24 09:31 25 MG Lactulose 15 ml DAILY PO 11/10/24 10:00 11/11/24 09:32 15 ML Al Hydrox/Mg Hydrox/Simethicone 15 ml Q8HP PRN PO 11/10/24 07:45 Thiamine HCl 500 mg/Dextrose 55 ml @ 100 mls/hr BID IV 11/10/24 12:30 11/12/24 22:32 11/11/24 09:44 100 MLS/HR Thiamine HCl 250 mg/Dextrose 52.5 ml @ 100 mls/hr DAILY IV 11/13/24 10:00 11/18/24 09:59 Lorazepam 1 mg Q6HP PRN PO 11/10/24 12:30 Azithromycin 500 mg DAILY PO 11/11/24 10:00 11/11/24 09:32 500 MG Examination General: Patient alert and oriented in person, place and time. Patient following commands. HEENT: Normocephalic, atraumatic, moist mucous membranes Respiratory/pulmonary: Clear lungs bilaterally, vesicular murmurs present in almost all lung warner, no associated crackles or wheezes. Cardiovascular: Heart sounds are distant, no murmur heard Abdomen: Protuberant abdomen, without any tenderness Extremities: Grade 2 pitting edema present Peripheral Pulses: 3+ Radial (R). 3+ Radial (L). 3+ Dorsalis pedis (R). 3+ Dorsalis pedis(L) Skin: No rashes or pruritus, there is no sacral edema present at this time. Neurological: Intact cranial nerves with no focal neurologic deficits laboratory and microbiology Laboratory Tests 11/10/24 06:14 11/09/24 02:22 Test 11/10/24 06:14 Range/Units Serum Glucose 105 74-106 mg/dL Problem List/Assessment/Plan Problem List/Assessment/Plan Acute hypoxic respiratory failure, due to Pneumonia, d/t gram+/gram-, possible Atelectasis on x-ray due to mucus plugs, possible CXR: Opacity in the left lower lobe. Continue breathing treatment as needed Switch to oral azithromycin Continue telemetry Essential hypertension Hypertensive emergency, resolved Managed with Hydralazine, Amlodipine, Hydrochlorothiazide , Metoprolol Status post PCI Continue Plavix, Aspirin, Atorvastatin BART likely due to VMN Creatinine 1.38 IV fluid and monitor labs Chronic alcohol Use [facility] protocol Metabolic encephalopathy due to below, possible Wernicke's encephalopathy, possible Liver cirrhosis Hepatic steatosis Started high-dose IV thiamine, folic acid Continue lactulose Alcohol use disorder Monitor for [facility]. Hx of CAD Hx of TIA Morbid obesity Acute systolic heart failure, ruled out Echo shows LVEF 60% Hemorrhagic Stroke, ruled out Head CT: No areas of acute intracranial pathology. DIET: Liquid DVT PROPHYLAXIS: Lovenox GI PROPHYLAXIS: Protonix CODE STATUS: Goals of care discussed with patient at bedside for more than 29 minutes. Full code DISPOSITION: Med/surge Patient's status and plan discussed with the patient. Case discussed with Dr. Ko. Plan discussed with: Patient Date of Service: Nov 11, 2024 Billing Provider: ANITHA KO MD Common Visit Codes: [id number] INP/OBS CARE(HIGH) PARMJIT MCLAUGHLIN RESIDENT Nov 11, 2024 13:16 ANITHA KO MD Nov 14, 2024 22:17
[2024-11-12] VITALS (12 sets, daily range): BP systolic 132–155; BP diastolic 77–114; PULSE 61–92; RESP 17–20; TEMP 97.5–98.1; O2SAT 91–100
[2024-11-12] MEDS ORDERED: FOLI400T15 PO (10:34)
[2024-11-12] MEDS ORDERED: THIA100T13 PO (10:34)
[2024-11-12] MEDS ORDERED: AMLO1TAB23 PO (10:37)
[2024-11-12] MEDS ORDERED: HYDR25TA5 PO (10:37)
--- NOTE | 2024-11-12 11:00 | DVHDSRES ---
Discharge Summary Date of Admission Resident Creating Document: MAKENZIE WHITEHEAD RESIDENT Nov 08, 2024 at 22:18 Date of Discharge: Nov 12, 2024 Labs/Diagnostic Data: Laboratory Results Test 11/10/24 10:48 11/10/24 06:14 11/09/24 19:25 11/09/24 02:22 Urine Color Yellow (Yellow) Urine Clarity Clear (Clear) Urine pH 5.0 (5.0-9.0) Urine Specific [place] 1.022 (1.001-1.035) Urine Protein Negative (Negative) Urine Ketones Negative (Negative) Urine Blood Negative /uL (Negative) Urine Nitrite Negative (Negative) Urine Bilirubin Negative (Negative) Urine Urobilinogen Normal mg/dL (Negative) Urine Leukocyte Esterase Negative /uL (Negative) Urine RBC None seen /hpf (0 - 3) Urine Microscopic WBC < 1 /HPF (0-3) Urine Squamous Epithelial Cells Few /hpf (<5) Urine Bacteria None seen /hpf (None Seen) Urine Glucose Normal mg/dL (Normal) Urine Opiates Screen Neg (NEGATIVE) Urine Fentanyl Screen Neg (NEGATIVE) Urine Barbiturates Screen Neg (NEGATIVE) Urine Phencyclidine Screen Neg (NEGATIVE) Urine Amphetamines Screen Neg (NEGATIVE) Urine Benzodiazepines Screen Neg (NEGATIVE) Urine Cocaine Screen Neg (NEGATIVE) Urine Cannabinoids Screen Neg (NEGATIVE) Sodium Level 139 mmol/L (136-145) Potassium Level 3.8 mmol/L (3.5-5.1) Chloride Level 104 mmol/L (98-107) Carbon Dioxide Level 24 mmol/L (20-31) Anion Gap 11 (5-15) Blood Urea Nitrogen 19 mg/dL (9-23) Creatinine 1.42 mg/dL (0.700-1.30) Glomerular Filtration Rate Calc 57 mL/min (>90) BUN/Creatinine Ratio 13.4 (10.0-20.0) Serum Glucose 105 mg/dL (74-106) Calcium Level 9.8 mg/dL (8.7-10.4) Total Bilirubin 1.7 mg/dL (0.2-1.0) Aspartate Amino Transferase (AST) 35 U/L (13-40) Alanine Aminotransferase (ALT) 54 U/L (7-40) Alkaline Phosphatase 84 U/L (46-116) Total Protein 7.2 g/dL (5.7-8.2) Albumin 5.0 g/dL (3.2-4.8) Prothrombin Time 11.4 sec (9.3-11.8) Prothrombin Time INR 1.08 (0.9-1.15) Ammonia 31 umol/L (11-32) White Blood Count 9.9 10^3/uL (4.4-10.8) Red Blood Count 5.30 10^6/uL (4.5-5.90) Hemoglobin 16.7 g/dL (13.5-17.5) Hematocrit 48.5 % (41.0-53.0) Mean Corpuscular Volume 91.4 fL (80.0-100.0) Mean Corpuscular Hemoglobin 31.4 pg (28.0-32.0) Mean Corpuscular Hemoglobin Concent 34.4 g/dL (32.0-36.0) Red Cell Distribution Width 14.1 % (11.8-14.3) Platelet Count 183 10^3/uL (140-450) Mean Platelet Volume 9.7 fL (6.9-10.8) Neutrophils (%) (Auto) 79.2 % (37.0-80.0) Lymphocytes (%) (Auto) 12.8 % (10.0-50.0) Monocytes (%) (Auto) 7.0 % (0.0-12.0) Eosinophils (%) (Auto) 0.6 % (0.0-7.0) Basophils (%) (Auto) 0.4 % (0.0-2.0) Neutrophils # (Auto) 7.8 10 ^3/uL (1.6-8.6) Lymphocytes # (Auto) 1.3 10 ^3/uL (0.4-5.4) Monocytes # (Auto) 0.7 10 ^3/uL (0-1.3) Eosinophils # (Auto) 0.1 10 ^3/uL (0-0.8) Basophils # (Auto) 0 10 ^3/uL (0-0.2) Nucleated Red Blood Cells 0.1 % D-Dimer, Quantitative < 0.19 mg/L FEU (0.0-0.49) Test 11/09/24 01:14 11/08/24 21:00 11/08/24 17:46 Influenza Type A Antigen Negative (Negative) Influenza Type B Antigen Negative (Negative) SARS-CoV-2 Antigen (Rapid) Negative (NEGATIVE) Troponin I High Sensitivity 11 ng/L (</=54) B-Type Natriuretic Peptide 18.03 pg/mL (0-100) Other Laboratory Tests 11/10/24 06:14 11/09/24 02:22 Brief Hx & Hospital Course: Brief history on arrival: Frank Perez is a 59-year-old male with previous history of CAD, TIA, HTN, presents to the ER with complain of shortness of breaths. SOB worsens with lying down and exertion, improves on sitting. No history of chest pain, palpitation, cough. Has a history of NSTEMI on 11/2023. He reported undergoing echo 3 years ago which was normal. He also complains of right sided weakness since last 3 days. He reported diarrhea since 1 year, with floating stools associated with the abdominal pain, no blood in stools. He has alternating constipation, has not underwent a colonoscopy. On discussion with girlfriend after his permission, she reported he drinks 4 beers daily and has difficulty quitting alcohol in the past. She also reported confusion, forgetfulness and declining alcohol abuse. Hospital course See who is admitted along the lines of hypertensive emergency and acute metabolic encephalopathy. CT head shows no acute abnormality. His labs revealed elevated total bilirubin. Initial x-ray revealed opacity in the left lower lobe. He was started on IV antibiotics, IV fluids and pain management. He was started on CIWA protocol. His ultrasound reviewed liver cirrhosis, steatosis. No suspicion of Wernicke's encephalopathy cholesterol around high-dose IV thiamine, folic acid, lactulose. His hypertensive emergency, resolved. His condition overall improved, has improved coordination. He is stable for discharge and will continue oral thiamine and folic acid. Screened for depression and anxiety, offered resources for alcohol use disorder. Final diagnosis: Acute hypoxic respiratory failure, ruled out Pneumonia, d/t gram+/gram-, possible Atelectasis on x-ray due to mucus plugs, possible Essential hypertension Hypertensive emergency, resolved Hx of CAD Status post PCI BART likely due to VMN Chronic alcohol Use Acute alcohol intoxication /withdrawal, possible Metabolic encephalopathy due to below, possible Wernicke's encephalopathy, possible Liver cirrhosis Hepatic steatosis Alcohol use disorder Hx of TIA Morbid obesity Acute systolic heart failure, ruled out Hemorrhagic Stroke, ruled out Discharge plan: Continue daily oral thiamine, folic acid Follow-up with PCP in 1 week Follow-up in discharge clinic in 2 weeks Continue home medications Operations or Procedures ULTRASOUND ABDOMEN, LIMITED RIGHT UPPER QUADRANT: REASON FOR EXAM: known long lasting alcohol consumption, rule out cirrhosis TECHNIQUE: Real-time sector scans in the transverse and longitudinal planes were obtained through the right upper quadrant of the abdomen. FINDINGS: The liver is borderline enlarged at 16.3 cm in length. The liver is mildly nodular. The liver echotexture is coarse and echogenic. There is hepatopetal flow in the portal vein. There is no intrahepatic nor extrahepatic biliary ductal dilatation. The common bile duct measures 5 mm. No gallstones or sludge are identified. There is no gallbladder wall thickening nor pericholecystic fluid. There is no sonographic Banks's sign. The pancreas is obscured by bowel gas. The right kidney measures 10.5 cm. No hydronephrosis or nephrolithiasis is identified. There is no evidence of right renal mass or cyst. The visualized portions of the abdominal aorta demonstrate no evidence of aneurysmal dilatation. The visualized inferior vena cava is unremarkable. There is no free fluid identified in the right upper quadrant. IMPRESSION: Mildly nodular liver surface suggestive of cirrhosis. The liver is diffusely echogenic which may be secondary to steatosis or another diffuse hepatocellular process. Correlate clinically and with liver function tests. ---- Procedure: CT HI-RESOLUTION CHEST CT Reason for study/Clinical History: rule out interstitial lung disease Comparison Study: None TECHNIQUE: Multidetector CT of the chest was performed from the lung apices to the upper abdomen without the use of intravenous contract. Axial, coronal and sagittal multiplanar reformats were performed. Radiation Dose Information: CT Dose: CTDI volume is 29.73 mGy. Dose-length product is 2.54 mGy*cm The dose indicators for CT are the volume Computed Tomography (CT) Dose Index (CTDIvol) and the Dose Length Product (DLP), and are measured in units of mGy and mGy-cm, respectively. These indicators are not patient dose, but values generated from the CT scanner acquisition factors. The report includes radiation exposure data for exposures received during this examination. FINDINGS: Lower neck: Unremarkable. Lungs: No focal consolidation. No suspicious pulmonary nodule. Heart/Vascular Structures: Cardiomegaly. Coronary artery calcifications. Vascular calcifications of the aorta. Lymph Nodes: No adenopathy Pleura: No pleural effusion or significant pneumothorax. Musculoskeletal: No acute osseous abnormality. Soft tissues: Normal. Upper abdomen: Limited portions of the upper abdomen are unremarkable. IMPRESSION: No acute intrathoracic abnormality. No findings to suggest interstitial lung disease. ---- CT HEAD WITHOUT CONTRAST INDICATION: rule out intracranial pathology and hemorrohagic stroke EXAM DATE: 11/09/2024 03:05 PM COMPARISON: CT HEAD WITHOUT CONTRAST on DOS: 11/08/24 RADIATION DOSE: CTDIvol: 67 mGy, DLP: 1126 mGy*cm PROCEDURE: CT scans of the head were obtained from the vertex to the skull base. Sagittal and coronal reconstructions were provided. All CT scans at this medical facility are performed using dose modulation techniques as appropriate to a performed exam including the following: Automated exposure control was utilized; adjustment of the MA and/or KV according to patient size; and use of iterative reconstruction technique. FINDINGS: Similar left frontal lobe encephalomalacia from old infarct. There is sulcal and ventricular prominence. The brain otherwise shows normal morphology and powers-white matter differentiation, without intracranial hemorrhage, extra- axial fluid collection, mass effect or acute large vessel infarct. The ventricles are normal in size. The basal cisterns are patent. The skull and visible facial bones are intact. The paranasal sinuses are opacified. The mastoid air cells and middle ear cavities are well-aerated. The soft tissues of the scalp are unremarkable. IMPRESSION: Severe paranasal sinusitis. No acute intracranial abnormality. ---- 11/08: CT brain without contrast CLINICAL INDICATION: R sided weakness FINDINGS: The study was performed in a multidetector scanner. This study performed taking axial images from the skull base up to the vertex. Both brain and bone windows are photographed. Dose lowering techniques have been used including automated exposure control and adjustment of mA and/or KV according to patient size. There are no areas of intraparenchymal hemorrhage or edema. Focal cystic area near the frontal horn of the left lateral ventricle either due to old lacunar infarct or injury. No hydrocephalus. No midline shift. There is opacification of the frontal ethmoid and maxillary sinus air cells. IMPRESSION: 1. No areas of acute intracranial pathology. Focal encephalomalacia in the white matter anterior to the frontal horn left lateral ventricle probably due to old infarct or possibly injury. --- CHEST RADIOGRAPH Indication: hi bp Technique: Single frontal view of the chest was obtained Comparison: XY CHEST PORTABLE on DOS: 11/27/23 FINDINGS: Lines and Tubes: None Lungs: Scarring or linear atelectasis left costophrenic angle. No prior studies for comparison Pleura: No effusion. No pneumothorax. Cardiomediastinal contours: Unremarkable Bones: No acute osseous abnormality. IMPRESSION: 1. Scarring or linear atelectasis left costophrenic angle. No prior studies for comparison. Report from 11/27/2023 on a chest x-ray is available however there are no prior studies to compare. In the no was no mention of atelectasis in the left costophrenic angle. Condition at Discharge: Stable Final Diagnosis/Problems List Acute hypoxic respiratory failure, ruled out Pneumonia, d/t gram+/gram-, possible Atelectasis on x-ray due to mucus plugs, possible Essential hypertension Hypertensive emergency, resolved Hx of CAD Status post PCI BART likely due to VMN Chronic alcohol Use Acute alcohol intoxication /withdrawal, possible Metabolic encephalopathy due to below, possible Wernicke's encephalopathy, possible Liver cirrhosis Hepatic steatosis Alcohol use disorder Hx of TIA Morbid obesity Acute systolic heart failure, ruled out Hemorrhagic Stroke, ruled out Discharge Disposition: Home Discharge Instruct/Medications Activity: No Restrictions, As Tolerated New Medications: Amlodipine Besylate (Amlodipine Besylate) 10 Mg Tab 10 MG PO DAILY for 30 Days, #30 TAB Folic Acid (Folate) 400 Mcg Tab 400 MCG PO DAILY for 30 Days, #30 TAB Hctz (Hydrochlorothiazide) 25 Mg Tab 25 MG PO DAILY for 30 Days, #30 TAB Thiamine HCl (Thiamine Hydrochloride) 100 Mg Tab 100 MG PO DAILY for 30 Days, #30 TAB Continued Medications: Aspirin (Aspir-Low) 81 Mg Tab 81 MG PO DAILY for 30 Days, #30 TAB 4 Refills Atorvastatin Calcium (Atorvastatin Calcium) 20 Mg Tab 80 MG PO HS for 30 Days, #30 TAB 4 Refills Clopidogrel Bisulfate (Clopidogrel) 75 Mg Tab 75 MG PO DAILY for 30 Days, #30 TAB 4 Refills Discontinued Medications: Atorvastatin Calcium (Atorvastatin Calcium) 80 Mg Tab 1 TAB PO DAILY for cholesterol Scheduled Amlodipine Besylate (Amlodipine Besylate), 10 MG PO DAILY Aspirin (Aspir-Low), 81 MG PO DAILY Atorvastatin Calcium (Atorvastatin Calcium), 80 MG PO HS Clopidogrel Bisulfate (Clopidogrel), 75 MG PO DAILY Folic Acid (Folate), 400 MCG PO DAILY Hctz (Hydrochlorothiazide), 25 MG PO DAILY Labetalol HCl (Labetalol HCl), 1 TAB PO BID, (Reported) Lorazepam (Ativan Tablet), 1 TAB PO HS, (Reported) Losartan Potassium (Losartan Potassium), 50 MG PO BID Metoprolol Succinate (Toprol Xl), 50 MG PO BID Thiamine HCl (Thiamine Hydrochloride), 100 MG PO DAILY Scheduled PRN Ipratropium-Albuterol (Combivent Respimat), 1 PUFF IN Q4HP PRN Discontinued Medications Atorvastatin Calcium (Atorvastatin Calcium), 1 TAB PO DAILY, (Reported) Methylprednisolone (Methylprednisolone Dose P), UD, (Reported) Discharge Statement: "Patient was advised to return to the ER or call 911 if any headaches, dizziness, shortness of breath, chest pain, abdominal pain, bleeding, fevers, or worsening of medical condition. Patient was counseled about treatment plan, medications, possible side effects, patientverbalized understanding. All questions were answered to the best of my ability. This discharge took greater then 30 minutes in planning, reviewing documentation, counseling the patient, and discussing with other team members." ASSESSMENT ASSESSMENT Assessment Date of Service: Nov 12, 2024 Billing Provider: ANITHA KO MD Common Visit Codes: 96336-MSA/OBS DISCH DAY >30min MAKENZIE WHITEHEAD RESIDENT Nov 12, 2024 11:00 ANITHA KO MD Nov 14, 2024 22:48
[2024-11-12 12:33] LABS: Alanine Aminotransferase 51 U/L (7-40); Albumin 5.1 g/dL (3.2-4.8); Alkaline Phosphatase 87 U/L (46-116); Anion Gap 10 (5-15); BUN/Creatinine Ratio 14.8 (10.0-20.0); Bilirubin, Total 1.7 mg/dL (0.2-1.0); Blood Urea Nitrogen 20 mg/dL (9-23); Calcium 9.9 mg/dL (8.7-10.4); Carbon Dioxide 26 mmol/L (20-31); Chloride 104 mmol/L (98-107); Glucose 94 mg/dL (74-106); Potassium 3.5 mmol/L (3.5-5.1); Sodium 140 mmol/L (136-145); Total Protein 7.4 g/dL (5.7-8.2)
[2024-11-12] MEDS ORDERED: IPRAAER6 IN (15:59)
[2024-11-13] MEDS ORDERED: THIAMINE INJ 250 MG in D5W 5% 50 ML IV SCH (10:00)
--- NOTE | 2024-11-13 12:58 | ECG ---
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
== END 2024-11-12 18:45 | disposition home or self-care (01) | DRG 137 ==
LOC: ER 16:55 → OVERFLOW 22:18 → TELE-CENTR 22:24
PROVIDERS: ADMIT Student in an Organized Health Care Education/Training Program; ATTEND Student in an Organized Health Care Education/Training Program
DX: J15.69 Pneumonia due to other Gram-negative bacteria (principal); G93.41 Metabolic encephalopathy; I16.1 Hypertensive emergency; J98.11 Atelectasis; E51.2 Wernicke's encephalopathy; K74.60 Unspecified cirrhosis of liver; K76.0 Fatty (change of) liver, not elsewhere classified; E66.01 Morbid (severe) obesity due to excess calories; F10.129 Alcohol abuse with intoxication, unspecified; Z68.39 Body mass index [BMI] 39.0-39.9, adult; Z20.822 Contact with and (suspected) exposure to COVID-19; J15.9 Unspecified bacterial pneumonia; Y90.9 Presence of alcohol in blood, level not specified; I25.10 Atherosclerotic heart disease of native coronary artery without angina pectoris; Z86.73 Personal history of transient ischemic attack (TIA), and cerebral infarction without residual deficits; I25.2 Old myocardial infarction; I12.9 Hypertensive chronic kidney disease with stage 1 through stage 4 chronic kidney disease, or unspecified chronic kidney disease; N18.9 Chronic kidney disease, unspecified
CPT/HCPCS: 36415; 70450; 71045; 71250; 76705; 80048; 80053; 80307; 81001; 82140; 83880; 84443; 84484; 85025; 85379; 85610; 87426; 87804; 93005; 93306; 94640; 96374; 96375; 97110; 97116; 97163; 99291; G0378; J2405; J7060